=== PATIENT | female | born 1980 | race Caucasian/White ===

== ENCOUNTER 2020-03-10 19:33 | Emergency (ER) | payer BC, SELFPAY ==
--- NOTE | ~2020-03-10 | US_ITS ---
EXAMINATION: US OB <=14 wk fetus w TV DATE: 03/10/2020 22:33 INDICATION: Pelvic pain and spotting during first trimester TECHNIQUE: Real-time pelvic transabdominal and transvaginal ultrasound was performed. COMPARISON: None. FINDINGS: The uterus measures 10.4 x 4.9 x 5.0 cm. There is an irregular shaped intrauterine gestati onal sac. There is moderate to large size subchorionic hemorrhage. No cardiac motion is identif ied. A questionable pole measures 1 cm , which correlates with an estimated gestational age of 7 weeks and 3 day(s) (+/-) 4 day(s). The right ovary measures 3.4 x 2.5 x 2.5 cm. The left ovary measures 2.8 x 1.7 x 2.7 cm. There is nor mal vascular flow in the ovaries. There is no free fluid in the pelvis. IMPRESSION: 1. Irregular gestational sac containing a possible pole with no cardiac motion. 2. Moderate to large subchorionic hemorrhage. These findings were discussed with Dr. Mono Teran in the Emergency Department at 2225 hours o n 03/10/2020 by the [facility] Radiologist. Reviewed, dictated and finalized at location A. IMPRESSION: 1. Irregular gestational sac containing a possible pole with no car diac motion. 2. Moderate to large subchorionic hemorrhage. These findings were discussed with Dr. Mono Teran in the Emergency Depa rtment at 2225 hours on 03/10/2020 by the [facility] Radiologist.
[2020-03-10 19:36] VITALS: BP 146/89; PULSE 87; RESP 20; TEMP 35.5; O2SAT 99
--- NOTE | 2020-03-10 19:41 | ED.ABDPAIN ---
HPI - Abdominal Pain General Chief Complaint: Abdominal Pain Stated Complaint: severe menstraul cramps Time Seen by Provider: 03/10/20 19:40 History of Present Illness HPI narrative: Severe pelvic cramps and spotting today. She is currently on birthcontrol and is not expecting to be on her period at this time. She says that her cramps feel similar to labor pains. Related Data Home Medications Medication Instructions Recorded Confirmed labetalol 100 mg PO Q12H 08/31/19 09/29/19 drospirenone (contraceptive) 03/10/20 03/10/20 [Slynd] Allergies Allergy/AdvReac Type Severity Reaction Status Date / Time cortisone Allergy Intermediate LOCALIZED Verified 03/10/20 19:37 REDNESS/SWELLING bacitracin Allergy Unknown Swelling Verified 03/10/20 19:37 of the Eye neomycin Allergy Unknown Swelling Verified 03/10/20 19:37 of the Eye polymyxin B Allergy Unknown Swelling Verified 03/10/20 19:37 of the Eye Review of Systems Review of Systems: All systems reviewed & are unremarkable except as noted in HPI and below Constitutional: Constitutional: Denies fever(s) Cardiovascular: Cardiovascular: Denies chest pain Respiratory: Respiratory: Denies dyspnea Gastrointestinal: Gastrointestinal: Reports abdominal pain, Denies nausea and Denies vomiting Genitourinary: Genitourinary: Denies dysuria Neurologic: Denies numbness and Denies weakness PMFSH Past Medical History Medical History Arthritis Diverticulitis History of adhesions x2 last time in 2014 with small perforation Gallbladder disease Gastrointestinal bleed History of reproductive disorder Uterine abscess related to IUD removed Hypertension Seasonal allergies Urinary tract infection Surgical History Surgical History Hx of cholecystectomy Previous section X4 Family History Family History Other Cerebrovascular accident Diabetes mellitus Family history of allergic disorder Family history of colonic diverticulitis Family history of congestive heart failure Family history of malignant neoplasm Hypertension Social History Social History Smoking status: Never smoker Alcohol intake: current Exam Const: General: no acute distress and alert Nutritional Appearance: obese Orientation/consciousness: patient oriented x3 HENMT: Head: normal to inspection Resp: Effort & Inspection: normal respiratory effort Auscultation: clear to auscultation bilaterally Cardio: Rate: regular rate Rhythm: regular rhythm GI: GI Palp: Yes Soft to palpation and No Tenderness to palpation present (GI) Skin: General skin exam: normal color Neuro: General: patient oriented x3, moves all extremities and CN's II-XI intact bilaterally Speech: normal speech Extrem: General: normal to inspection Course Vital Signs Vital signs: Vital Signs Temperature 35.5 C L 03/10/20 19:36 Pulse Rate 87 03/10/20 19:36 Respiratory Rate 20 03/10/20 19:36 Blood Pressure 146/89 H 03/10/20 19:36 Pulse Oximetry 99 03/10/20 19:36 Temperature 35.5 C L 03/10/20 19:36 Pulse Rate 86 03/10/20 23:52 Respiratory Rate 12 03/10/20 23:52 Blood Pressure 106/56 L 03/10/20 23:52 Pulse Oximetry 99 03/10/20 23:52 MDM - Abdominal Pain MDM Narrative Medical decision making narrative: Positive test. Minimally elevated beta hcg. US shows likely miscarriage in progress. Case discussed with Dr. Becerra. They will see her in clinic on Wednesday. Differential Diagnosis Differential diagnosis: Unlikely acute appendicitis, calculus of kidney, diverticulitis, pancreatitis and small bowel obstruction Medical Records Attestation: I reviewed the patient's medical records. Lab Data Attestation: I reviewed the pat
[2020-03-10 20:19] LABS: Add Urine Microscopic? YES; Appearance Urine Clear (Clear); Bilirubin Urine Negative (Negative); Blood Urine 3+ (Negative); Color Urine Yellow (Yellow); Glucose Urine UA Negative (Negative); Ketones Urine Negative (Negative); Leukocyte Esterase Ur Trace LEU/UL (Negative); Mucus Urine Moderate /lpf; Nitrate Urine Negative (Negative); Protein Urine 2+ mg/dL (Negative); RBC Urine >75 /hpf (0-2); Specific Grav Ur 1.028 (1.001-1.035); Squamous Epithelial Cell Urine Few /hpf (Few); Urobilinogen Urine Negative mg/dL (<2.0)
[2020-03-10 20:41] LABS: Basophils Percent Auto 0.3 % (0.2-1.2); Eosinophils Absolute Auto 0.3 K/mm3 (0-0.3); Eosinophils Percent Auto 2.1 % (0-4.4); Hematocrit 40.1 % (37.0-47.0); Hemoglobin 13.7 g/dL (12.0-15.0); Immature Granulocyte Absolute 0.04 K/mm3 (0.00-0.031); Immature Granulocyte Percent A 0.3 % (0-0.5); Lymphocytes Absolute Auto 3.29 K/mm3 (0.9-3.2); Mean Corpuscular HGB Conc 34.2 g/dl (32-36); Mean Corpuscular Hemoglobin 29.2 pg (26-34); Mean Corpuscular Volume 85.5 fl (80-100); Mean Platelet Volume 11.4 fl (7.4-10.4); Monocytes Absolute Auto 0.7 K/mm3 (0.1-0.6); Neutrophils Absolute Auto 9.9 K/mm3 (1.3-6.7); Neutrophils Percent Auto 69.3 % (45.5-73.1); Platelet Count Result 226 k/mm3 (150-375); Red Blood Count 4.69 M/mm3 (4.2-5.4); Red Cell Distribution Width 13.6 % (11.5-14.5); White Blood Count 14.3 K/mm3 (4.5-10.0)
[2020-03-10 20:53] LABS: Alanine Aminotransferase 22 U/L (4-35); Albumin Level 4.4 g/dL (3.5-5.1); Alkaline Phosphatase 57 U/L (38-126); Aspartate Amino Transferase 21 U/L (14-36); Bilirubin,Total 0.7 mg/dL (0.2-1.3); Blood Urea Nitrogen 11 mg/dL (7-17); Calcium 9.5 mg/dL (8.4-10.2); Carbon Dioxide 25 mmol/L (22-30); Chloride 105 mmol/L (98-107); Estimated Glomerular Filt Rate > 60; Glucose 104 mg/dL (65-105); Lipase 69 U/L (23-300); Potassium 3.9 mmol/L (3.4-5.0); Sodium 137 mmol/L (137-145)
[2020-03-10 21:30] LABS: Beta HCG Quantitative 12.33 mIU/ML
--- NOTE | 2020-03-10 21:34 | PC.NURSE ---
pt to radiology
--- NOTE | 2020-03-10 22:00 | PC.NURSE ---
Printing Plate Setter called RN, states pt is on the toilet and passing large clots. UT states pt keeps asking what is going on and tech told her she cannot say anything. asked UT if RN is needed, ut said no. pt states she wants to stay on toilet for now.
--- NOTE | 2020-03-10 22:25 | PC.NURSE ---
phlebotomy support tech called ED charge asking for RN. States pt is dizzy lightheaded and feels like she is going to pass out. requested RN to come down to ultrasound. pt diaphoretic and states she cannot see. pt transferred safely to bed and taken back to Rm 3. EDP notified. ED charge in w/ 1L ns. pt hooked up to monitor and second IV initiated. edp at bedside at this time. [id number]
[2020-03-10 22:28] VITALS: BP 105/66; PULSE 85; RESP 27; O2SAT 96
[2020-03-10] MEDS: SODIUM CHLORIDE 0.9% IV 1,000 ML 999 ML (22:31)
[2020-03-10] MEDS: KETOROLAC 30 MG/ML VIAL (*BKC) IV PUSH (23:11)
[2020-03-10 23:52] VITALS: BP 106/56; PULSE 86; RESP 12; O2SAT 99
[2020-03-10] MEDS: MORPHINE SULFATE 2 MG/ML INJ IV PUSH (23:52)
== END 2020-03-11 00:05 | disposition home or self-care (01) ==
PROVIDERS: Emergency Medicine; Emergency Provider Emergency Medicine
DX: O03.4 Incomplete spontaneous abortion without complication (principal); M19.90 Unspecified osteoarthritis, unspecified site; I10 Essential (primary) hypertension; Z87.440 Personal history of urinary (tract) infections
CPT/HCPCS: 36415; 76801; 76817; 80053; 81001; 81025; 83690; 84702; 85025; 85461; 87086; 87088; 96361; 96374; 96375; 99284; J1885; J2270; J7030

== ENCOUNTER 2020-03-14 09:04 | Outpatient (CLI) | payer BC, SELFPAY ==
[2020-03-14 17:16] LABS: SARS-CoV-2 RNA PCR Negative
== END 2020-03-14 09:05 | disposition home or self-care (01) ==
LOC: ANHCOVIDDT 09:04
PROVIDERS: Visit Provider Obstetrics & Gynecology
DX: Z01.812 Encounter for preprocedural laboratory examination (principal); Z20.828 Contact with and (suspected) exposure to other viral communicable diseases
CPT/HCPCS: 87635; C9803; U0003

== ENCOUNTER 2020-03-15 00:48 | Day surgery (SDC) | payer BC, SELFPAY ==
[2020-03-14 12:40] VITALS: BMI 42.5
--- NOTE | 2020-03-14 13:07 | PM.IMHP ---
H&P: HPI History of Present Illness Chief complaint: Missed AB Narrative: Nadia Ramon is a 39 year old female Was admitted for suction dilatation curettage secondary to incomplete AB. She also wants to have a Nexplanon placed. Risks and benefits of both procedures were reviewed Review of Systems Review of Systems: All systems reviewed & are unremarkable except as noted in HPI and below PMFSH Past Medical History Medical History Arthritis Diverticulitis History of adhesions x2 last time in 2014 with small perforation Gallbladder disease Gastrointestinal bleed History of reproductive disorder Uterine abscess related to IUD removed Hypertension Seasonal allergies Urinary tract infection Surgical History Surgical History Hx of cholecystectomy Previous section X4 Family History Family History Other Cerebrovascular accident Diabetes mellitus Family history of allergic disorder Family history of colonic diverticulitis Family history of congestive heart failure Family history of malignant neoplasm Hypertension Social History Social History Smoking status: Never smoker Alcohol intake: current Meds Home Medications and Allergies Home Medications Medication Instructions Recorded Confirmed Type labetalol 100 mg PO Q12H 08/31/19 03/14/20 History hydrocodone-acetaminophen [[place]] 1 tablet PO Q4H PRN #10 tablet 03/10/20 03/14/20 Rx bimatoprost [Lumigan] 1 drp OPHTHALMIC (EYE) HS 03/14/20 03/14/20 History calcium polycarbophil [Fiber-Tabs] 625 mg PO TID 03/14/20 03/14/20 History cetirizine [Zyrtec] 10 mg PO DAILY 03/14/20 03/14/20 History docusate sodium [Colace] 100 mg PO DAILY PRN 03/14/20 03/14/20 History 21-iron fu-folic acid 1 tablet PO DAILY 03/14/20 03/14/20 History [ Complete] Allergies Allergy/AdvReac Type Severity Reaction Status Date / Time cortisone Allergy Intermediate LOCALIZED Verified 03/14/20 12:40 REDNESS/SWELLING bacitracin Allergy Unknown Swelling Verified 03/14/20 12:40 of the Eye neomycin Allergy Unknown Swelling Verified 03/14/20 12:40 of the Eye polymyxin B Allergy Unknown Swelling Verified 03/14/20 12:40 of the Eye Exam Const: General: no acute distress Eyes: General: appearance normal, both eyes and all related structures Neck: Neck: supple and no JVD Thyroid: thyroid normal Resp: Effort & Inspection: normal respiratory effort Auscultation: clear to auscultation bilaterally Cardio: Rate: regular rate Rhythm: regular rhythm GI: Inspection: non-distended GI Palp: Yes Soft to palpation, No Tenderness to palpation present (GI) and No Guarding due to palpation present (GI) Auscultation: normal bowel sounds Skin: General skin exam: no rashes or lesions noted Extrem: General: normal to inspection and no edema Psych: Mental Status: mental status grossly normal Affect: normal affect Assessment and Plan Additional Plan impression: Incomplete AB Plan: Suction dilatation and curettage
--- NOTE | 2020-03-15 06:42 | WPDHPUPDATE1 ---
History and Physical Update Update Date/Time: 03/15/20 06:42 History and Physical has been reviewed, including an updated exam of the patient. There are NO changes in the patient's condition. Risks, benefits, and alternatives have been discussed and questions answered. Patient agrees to proceed with procedure.
[2020-03-15] MEDS: LACTATED RINGERS 1,000 ML 30 ML IV CONT (09:55)
--- NOTE | 2020-03-15 10:03 | P.PNAN_ITS ---
Anes - Initial Pre Proc Eval Procedure: Operation Date: 03/15/20 11:30 Proposed Procedures p Suction Dilation And Curettage With Nexplanon Insertion - Van Latham MD Date/Time: 03/15/20 10:03 Surgeon: Van Latham MD Pre Op Diagnosis: Missed AB Patient Data Age: 39 Gender: F Height: 5 ft 8 in Weight: 127.01 kg Allergies Allergy/AdvReac Type Severity Reaction Status Date / Time cortisone Allergy Intermediate LOCALIZED Verified 03/14/20 12:40 REDNESS/SWELLING bacitracin Allergy Unknown Swelling Verified 03/14/20 12:40 of the Eye neomycin Allergy Unknown Swelling Verified 03/14/20 12:40 of the Eye polymyxin B Allergy Unknown Swelling Verified 03/14/20 12:40 of the Eye Home Medications Medication Instructions Recorded Confirmed Type labetalol 100 mg PO Q12H 08/31/19 03/14/20 History hydrocodone-acetaminophen [[place]] 1 tablet PO Q4H PRN #10 tablet 03/10/20 03/14/20 Rx bimatoprost [[place]] 1 drp OPHTHALMIC (EYE) HS 03/14/20 03/14/20 History calcium polycarbophil [Fiber-Tabs] 625 mg PO TID 03/14/20 03/14/20 History cetirizine [Zyrtec] 10 mg PO DAILY 03/14/20 03/14/20 History docusate sodium [Colace] 100 mg PO DAILY PRN 03/14/20 03/14/20 History 21-iron fu-folic acid 1 tablet PO DAILY 03/14/20 03/14/20 History [ Complete] hydrocodone-acetaminophen [[place]] 1 tablet PO Q4H PRN #20 tablet 03/15/20 Rx Patient hx anesthesia problems: none Family hx anesthesia problems: none PMFSH Past Medical History Medical History Arthritis Diverticulitis History of adhesions x2 last time in 2014 with small perforation Gallbladder disease Gastrointestinal bleed History of reproductive disorder Uterine abscess related to IUD removed Hypertension Seasonal allergies Urinary tract infection Surgical History Surgical History Hx of cholecystectomy Previous section X4 Family History Family History Other Cerebrovascular accident Diabetes mellitus Family history of allergic disorder Family history of colonic diverticulitis Family history of congestive heart failure Family history of malignant neoplasm Hypertension Social History Social History Smoking status: Never smoker Alcohol intake: current Anes - Eval Final PreProcedure Day of Procedure 03/15/20 10:03 Patient weight: morbidly obese Heart: regular rate and rhythm Lungs: clear to auscultation Airway: Mallampati scale class II Neurological: alert and oriented Last oral intake: >/= 8 hours ASA classification: III Emergent: no Anesthetic plan: proceed Anesthesia type and monitoring: general GIVS and standard monitoring Informed Consent: The patient's anesthetic plan and its attendant risks and benefits were discussed with the patient/family/POA. Questions were solicited and answers provided to the satisfaction of the patient/family/POA.
[2020-03-15 10:11] VITALS: BP 137/78; PULSE 81; RESP 16; TEMP 36.1; O2SAT 98
[2020-03-15] MEDS: KETOROLAC 30 MG/ML VIAL (*BKC) IV PUSH (11:08)
--- NOTE | 2020-03-15 11:10 | PM.PROC ---
Procedure Note - Detailed Date of procedure: 03/15/20 Pre-op diagnosis: Missed AB Surgeon: Van Latham MD Postop diagnosis missed AB/desires placement of Nexplanon Procedure: Suction dilatation curettage/placement of Nexplanon Anesthesia: IV sedation and local Findings: Suction D&C products conception were found. Complications: None Description of procedures: The patient was prepped draped in the normal sterile fashion placed in the dorsal lithotomy position. Under excellent IV sedation weighted speculum placed in posterior fornix of vagina. Anterior lip of the cervix grasped with a single-tooth tenaculum. 2.5cc of 1% xylocaine anesthesia placed at 2:48 a.m. 10:00 a.m. respectively the cervix. Uterus sounded to 11cm. Serial dilatation with fragmented dilators performed. This was followed by passage of the 10. Suction curette removing a moderate amount of placental appearing tissue. When a good grating sound was heard this portion of the procedure was terminated. Blood loss was estimated at50cc at that point. Next the left antecubital area was swabbed with Betadine solution and instilled with 2cc of 1% xylocaine anesthesia. The Nexplanon was placed subcutaneously and palpated normal. Blood loss was 1cc for that making a total blood loss of 50cc for the entire procedure. The patient was awakened. All sponge, needle, instrument counts were correct. There were no immediate complications
[2020-03-15 11:18] VITALS: BP 85/54; PULSE 66; RESP 12; O2SAT 97
[2020-03-15 11:45] VITALS: BP 116/50; PULSE 62; RESP 12; O2SAT 97
[2020-03-15 12:15] VITALS: BP 110/62; PULSE 55; RESP 14
== END 2020-03-15 12:27 | disposition home or self-care (01) ==
PROVIDERS: Visit Provider Obstetrics & Gynecology
PROC: (CPT 59820; principal; 2020-03-15 11:30)
DX: O02.1 Missed abortion (principal); I10 Essential (primary) hypertension; E66.01 Morbid (severe) obesity due to excess calories; Z68.41 Body mass index [BMI] 40.0-44.9, adult
CPT/HCPCS: 59820; 88305; A9270; J1100; J1885; J2250; J2405; J2704; J7120

== ENCOUNTER 2021-01-31 17:03 | Emergency (ER) | payer OTHER, BC, SELFPAY ==
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
[2021-01-31 18:17] VITALS: BP 130/77; PULSE 70; RESP 20; TEMP 36.3; O2SAT 100
== END 2021-01-31 19:18 | disposition home or self-care (01) ==
PROVIDERS: Emergency Provider Nurse Practitioner
DX: S46.912A Strain of unspecified muscle, fascia and tendon at shoulder and upper arm level, left arm, initial encounter (principal); V49.40XA Driver injured in collision with unspecified motor vehicles in traffic accident, initial encounter; M19.90 Unspecified osteoarthritis, unspecified site; I10 Essential (primary) hypertension
CPT/HCPCS: 73030; 99213; A4565; G0463

== ENCOUNTER 2021-03-27 08:07 | Outpatient (CLI) | payer OTHER, BC, SELFPAY ==
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
== END 2021-03-27 08:08 | disposition home or self-care (01) ==
PROVIDERS: Visit Provider Orthopaedic Surgery
DX: R20.0 Anesthesia of skin (principal); M47.813 Spondylosis without myelopathy or radiculopathy, cervicothoracic region
CPT/HCPCS: 72141

== ENCOUNTER 2021-04-22 14:31 | Outpatient (CLI) | payer OTHER, BC, SELFPAY ==
--- NOTE | ~2021-04-22 | MR_ITS ---
EXAMINATION: MR shoulder LT w con DATE: 04/22/2021 16:16 INDICATION: Left shoulder pain. TECHNIQUE: Magnetic resonance imaging (MRI) of the left shoulder was performed without intravenous co ntrast after intra-articular injection of contrast (MR arthrogram). Sequences included axial T1-weigh molly FS FSE and T2-weighted FS FSE, coronal-oblique T1-weighted FS FSE and T2-weighted FS FSE, sagitta l-oblique T1-weighted FSE and T2-weighed FS FSE, and ABER T1-weighted FS FSE. COMPARISON: Left shoulder radiographs 01/31/2021 FINDINGS: Coracoacromial arch: The acromion undersurface is curved in morphology (type II). There is moderate acromioclavicular join t osteoarthritis including inferiorly directed osteophytes. There is mild subacromial/subdeltoid burs itis. Rotator cuff: There is mild supraspinatus and infraspinatus tendinopathy. Teres minor tendon is normal. There is mi ld subscapularis tendinopathy. No tear. There is no asymmetric fatty atrophy of the rotator cuff musc le bellies. Biceps tendon and glenoid labrum: Biceps tendon is in bicipital groove. Intra-articular biceps tendon is normal. The glenoid labrum is normal. Fluid: The glenohumeral joint is well distended by contrast. There is no contrast in subacromial/subdeltoid bursa. Bones/cartilage: There is cartilage surface irregularity of humeral head. There is shallow partial-thickness cartilage loss of glenoid involving the central and posterior articular surface. IMPRESSION: 1. Mild rotator cuff tendinopathy. No tear. 2. Mild glenohumeral joint chondrosis. 3. Moderate acromioclavicular joint osteoarthritis. 4. Mild subacromial subdeltoid bursitis. Reviewed, dictated and finalized at location A.
--- NOTE | ~2021-04-22 | XR_ITS ---
EXAMINATION: XR arthrogram shoulder LT DATE: 04/22/2021 15:37 INDICATION: Left shoulder pain. No prior surgery or dislocation. TECHNIQUE: A time-out was performed to verify the patient's name, date of , and procedure to b e performed. The procedure including the risks, benefits, and alternatives was discussed with the pat ient. Risks discussed included bleeding and infection. The patient understood the risks and agreed to proceed. The skin overlying the left glenohumeral joint was prepped and draped in usual sterile fash ion. Anesthetic was administered with 1% lidocaine subcutaneously. A 22 G needle was advanced under fluoroscopic guidance into the joint. Subsequently, injectate consisting of 12 mL of 1:200 Multihan ce, 1:4 1% lidocaine, and 1:4 Omnipaque 240 was instilled. The needle was removed and the entry site was cleaned and dressed. There were no immediate complications. Fluoroscopy exposure time was 0.1 m inutes. The total number of images was 2. FINDINGS: Real-time fluoroscopy demonstrates the needle and contrast in the left glenohumeral joint. IMPRESSION: 1. Successful left glenohumeral joint injection of contrast for subsequent MR arthrography. Reviewed, dictated and finalized at location A. IMPRESSION: 1. Successful left glenohumeral joint injection of contrast for subsequent MR a rthrography.
== END 2021-04-22 14:32 | disposition home or self-care (01) ==
PROVIDERS: Visit Provider Orthopaedic Surgery
DX: M19.012 Primary osteoarthritis, left shoulder (principal); M75.52 Bursitis of left shoulder
CPT/HCPCS: 23350; 73040; 73222; A9577

== ENCOUNTER → 2021-08-18 02:37 | Outpatient (CLI) | payer BC, SELFPAY ==
[2021-08-18 16:20] LABS: SARS-CoV-2 RNA PCR Negative
== END ==
PROVIDERS: Visit Provider Plastic Surgery
DX: Z01.812 Encounter for preprocedural laboratory examination (principal); Z20.822 Contact with and (suspected) exposure to COVID-19
CPT/HCPCS: C9803; U0003; U0005

== ENCOUNTER 2021-08-21 00:43 | Day surgery (SDC) | payer BC, SELFPAY ==
[2021-08-14 09:37] VITALS: BMI 45.6
--- NOTE | 2021-08-21 07:18 | WPDHPUPDATE1 ---
History and Physical Update Update Date/Time: 08/21/21 07:18 History and Physical has been reviewed, including an updated exam of the patient. There are NO changes in the patient's condition. Risks, benefits, and alternatives have been discussed and questions answered. Patient agrees to proceed with procedure.
--- NOTE | 2021-08-21 07:19 | WPDHPUPDATE1 ---
History and Physical Update Update Date/Time: 08/21/21 07:19 History and Physical has been reviewed, including an updated exam of the patient. There are NO changes in the patient's condition. Risks, benefits, and alternatives have been discussed and questions answered. Patient agrees to proceed with procedure.
[2021-08-21] MEDS: LACTATED RINGERS 1,000 ML 30 ML IV CONT (10:30)
--- NOTE | 2021-08-21 10:33 | WPDANESEPPF ---
Anes - Initial Pre Proc Eval Procedure: Operation Date: 08/21/21 11:30 Proposed Procedures p Excision Subcutaneous Mass Palmar Right Thumb - Josh Wadr MD Date/Time: 08/21/21 10:33 Surgeon: Josh Ward MD Pre Op Diagnosis: Subcutaneous Mass Palmar Right Thumb Patient Data Age: 41 Gender: F Height: 1.73 m Weight: 136 kg Allergies Allergy/AdvReac Type Severity Reaction Status Date / Time neomycin Allergy Severe EYE Verified 08/21/21 10:31 SWELLED WITH EYE DROPS cortisone AdvReac Unknown INFECTION Verified 08/21/21 10:31 AT INJECTION SITE Home Medications Medication Instructions Recorded Confirmed Type labetalol 200 mg PO BID 08/31/19 08/14/21 History bimatoprost [Lumigan] 1 drp OPHTHALMIC (EYE) HS 03/14/20 08/14/21 History calcium polycarbophil [Fiber-Tabs] 625 mg PO TID 03/14/20 08/14/21 History cetirizine [Zyrtec] 10 mg PO DAILY 03/14/20 08/14/21 History docusate sodium [Colace] 100 mg PO DAILY PRN 03/14/20 08/14/21 History 21-iron fu-folic acid 1 tablet PO DAILY 03/14/20 08/14/21 History [ Complete] ibuprofen 800 mg PO TID PRN #30 tablet 01/31/21 08/14/21 Rx Patient hx anesthesia problems: none Family hx anesthesia problems: none Results Review: All pre-operative results and documents have been reviewed as part of the pre-operative evaluation. [facility] Past Medical History Medical History Arthritis Diverticulitis History of adhesions x2 last time in 2014 with small perforation Gallbladder disease Gastrointestinal bleed History of reproductive disorder Uterine abscess related to IUD removed Hypertension Seasonal allergies Urinary tract infection Surgical History Surgical History Hx of cholecystectomy Previous section X4 Family History Family History Other Cerebrovascular accident Diabetes mellitus Family history of allergic disorder Family history of colonic diverticulitis Family history of congestive heart failure Family history of malignant neoplasm Hypertension Social History Social History Smoking status: Never smoker Alcohol intake: current Substance use: never Substance use type: does not use Living arrangements: with family Spiritual care concerns: No Anes - Eval Final PreProcedure Day of Procedure 08/21/21 10:33 Patient weight: morbidly obese Heart: regular rate and rhythm Lungs: clear to auscultation Airway: Mallampati scale class II Neurological: alert and oriented Last oral intake: >/= 8 hours ASA classification: III Emergent: no Anesthetic plan: proceed Anesthesia type and monitoring: general GIVS and standard monitoring Results Review: All pre-operative results and documents have been reviewed as part of the pre-operative evaluation. Informed Consent: The patient's anesthetic plan and its attendant risks and benefits were discussed with the patient/family/POA. Questions were solicited and answers provided to the satisfaction of the patient/family/POA.
[2021-08-21 10:38] VITALS: BP 138/82; PULSE 72; RESP 16; TEMP 36.7; O2SAT 98
[2021-08-21] MEDS: LIDO 1%/EPINEPHRINE/PF 1:200,000 30 ML VIAL INFILTRATE (11:15)
[2021-08-21 11:29] VITALS: BP 138/66; PULSE 67; RESP 16; O2SAT 98
--- NOTE | 2021-08-21 11:39 | W.PM.PROC2 ---
Procedure Note - Detailed Date of Procedure 08/21/21 Pre-op Diagnosis Subcutaneous Mass Palmar Right Thumb Post-op Diagnosis other (Ganglion cyst) Procedure Performed Excision 1 cm ganglion cyst right palmar 1st digit Surgeon Josh Ward MD Anesthesia MAC Indications Pain Findings Ganglion cyst Description of Procedure The tender mass on the right thumb was marked on the patient in the holding area. She was taken to the operating placed supine on the operating table. A time-out was held and confirmed. She was given some IV sedation and the extremity was prepped and draped in usual fashion. The digit was blocked with 1% lidocaine with epinephrine. A blue tourniquet was rolled onto the base of the thumb. The mass was easily identified. A chevron-type incision based radially was incised and elevated. The mass revealed itself as a glistening fluid mass consistent with ganglion cyst and was taken off largely by blunt dissection. No residual mass was noted. There was no deformity to the joint or tendon sheath except the small rent where the cyst was removed. The wound was closed with 5-0 Nylon suture. A soft flexible bandage was applied. The patient discharged instructions in wound care follow-up and a prescription for hydrocodone 325 3. Estimated Blood Loss -1.0
[2021-08-21 12:00] VITALS: BP 147/73; PULSE 59
[2021-08-21 12:30] VITALS: BP 145/69; PULSE 54
== END 2021-08-21 12:47 | disposition home or self-care (01) ==
PROVIDERS: Visit Provider Plastic Surgery
PROC: (CPT 26160; principal; 2021-08-21 11:30)
DX: M67.441 Ganglion, right hand (principal); I10 Essential (primary) hypertension; E66.01 Morbid (severe) obesity due to excess calories; Z68.42 Body mass index [BMI] 45.0-49.9, adult
CPT/HCPCS: 26160; J2250; J2704; J3010; J7120

== ENCOUNTER → 2023-09-02 09:54 | Outpatient (CLI) | payer BC, SELFPAY ==
--- NOTE | ~2023-09-02 | MM_ITS ---
EXAMINATION: MM screening wally BI w olivier HISTORY: Baseline screening mammogram TECHNIQUE: Craniocaudal and mediolateral oblique 3-D tomosynthesis images were obtained and synthetic 2-D images were generated. CAD analysis was submitted and interpreted. COMPARISON: None, baseline BREAST PARENCHYMAL COMPOSITION: There are scattered areas of fibroglandular density. FINDINGS: A mass in the middle third of the outer right breast demonstrates internal fat, consistent with an intramammary lymph node No suspicious mass, calcification, or architectural distortion are id entified in either breast to suggest malignancy. IMPRESSION: 1. No mammographic evidence of malignancy. 2. Recommend routine screening mammography in one year. BI-RADS Category 2: Benign finding(s). Reviewed, dictated and finalized at location A. CLERK
== END ==
PROVIDERS: PCP Obstetrics & Gynecology; Visit Provider Obstetrics & Gynecology
DX: Z12.31 Encounter for screening mammogram for malignant neoplasm of breast (principal)
CPT/HCPCS: 77063; 77067

== ENCOUNTER 2025-01-08 11:25 | Outpatient (CLI) | payer BC, SELFPAY ==
--- NOTE | ~2025-01-08 | MM_ITS ---
EXAMINATION: MM screening wally BI w olivier HISTORY: Screening TECHNIQUE: Craniocaudal and mediolateral oblique 3-D tomosynthesis images were obtained and synthetic 2-D images were generated. CAD analysis was submitted and interpreted. COMPARISON: 09/02/2023 BREAST PARENCHYMAL COMPOSITION: There are scattered areas of fibroglandular density. FINDINGS: Punctate and bulky calcifications are detected bilaterally, stable and benign in appearance . Stable parenchymal pattern without suspicious microcalcifications, architectural distortion, discrete masses or significant asymmetry. IMPRESSION: 1. No mammographic evidence of malignancy. 2. Recommend routine screening mammography in one year. BI-RADS Category 2: Benign finding(s). Reviewed, dictated and finalized at location A.
== END 2025-01-08 11:26 | disposition home or self-care (01) ==
LOC: MICIMG 11:26
PROVIDERS: PCP Obstetrics & Gynecology; Visit Provider Obstetrics & Gynecology
DX: Z12.31 Encounter for screening mammogram for malignant neoplasm of breast (principal)
CPT/HCPCS: 77063; 77067